=== PATIENT | male | born 1955 | race Caucasian/White ===

== ENCOUNTER → 2017-01-19 | Outpatient (CLI) | payer OTHER | END | disposition home or self-care (01) | LOC: PCVCIMAG 14:44 | PROVIDERS: ATTEND Internal Medicine | DX: I10 Essential (primary) hypertension (principal); R94.31 Abnormal electrocardiogram [ECG] [EKG] | CPT/HCPCS: 93306 ==

== ENCOUNTER → 2017-05-11 | Outpatient (CLI) | payer OTHER ==
[~2017-05-11] MED LIST: BENZOCAINE ONE 20% MUCOSAL SPRAY.; IV NORMAL SALINE 1000ML BAG 1,000 ML ONE; MIDAZOLAM HCL/PF 2 MG/2 ML VIAL. ONE; fentaNYL PF VIAL 100 MCG/2 ML VIAL ONE
--- NOTE | 2017-05-11 10:51 | PCVCIMAG ---
APPROVED REPORT Study performed: 05/11/2017 09:02:30 EXAM: Comprehensive 2D, Doppler, and color-flow Echocardiogram Patient Location: Angio Suite Room 1 Status: routine Indications Atrial Fibrillation Rule out left atrial appendage thrombus, pre-cardioversion assessment Procedure After obtaining informed consent, patient underwent transesophageal echo in the [facility]. Type of Sedation : Conscious Sedation Sedation was administered by Celia Nunes RN. Sedation was achieved intravenously with: Versed (5.5 mg) Fentanyl (150mcg) Transesophageal probe was inserted and advanced into esophagus without difficulty by Chris Box MD. The DINORA was performed without complications. Synchronized Cardioversion attempted: Successful Rhythm following Synchronized Cardioversion: Normal Sinus Rhythm Throughout the procedure, the blood pressure, pulse oximetry, cardiac rhythm, and rate were monitored. The patient tolerated the procedure without adverse effects. Recovery from conscious sedation was uneventful and vital signs were stable. Left Ventricle The left ventricle is normal size. There is normal LV segmental wall motion. There is normal left ventricular wall thickness. Left ventricular systolic function is mildly decreased. LVEF is 45%. Right Ventricle The right ventricle is normal size. The right ventricular systolic function is normal. Atria The left atrium size is normal. No clot in the left atrial appendage. Interatrial septum is intact without evidence of ASD or PFO. The right atrium size is normal. Aortic Valve The aortic valve is mildly sclerotic No aortic regurgitation is present. There is no aortic valvular stenosis. Mitral Valve The mitral valve is normal in structure. Mild mitral regurgitation. No evidence of mitral valve stenosis. Tricuspid Valve The tricuspid valve is normal in structure. There is no tricuspid valve regurgitation noted. Pulmonic Valve The pulmonary valve is normal in structure. There is no pulmonic valvular regurgitation. Great Vessels The aortic root is normal in size. Ascending aorta is normal in caliber. Pericardium There is no pericardial effusion. <Conclusion> Left ventricular systolic function is mildly decreased. There is normal LV segmental wall motion. LVEF 45%. The left atrium size is normal. No clot in the left atrial appendage. Interatrial septum is intact without evidence of ASD or PFO. The aortic valve is mildly sclerotic. No aortic regurgitation or stenosis The mitral valve is normal in structure. Mild mitral regurgitation. There is no pericardial effusion.
== END | disposition home or self-care (01) ==
LOC: PCVCINTER 07:45
PROVIDERS: ATTEND Internal Medicine
DX: I34.0 Nonrheumatic mitral (valve) insufficiency (principal); I48.91 Unspecified atrial fibrillation
CPT/HCPCS: 92960; 93312; 93325; 99152; J2250; J3010; J7030